=== PATIENT | female | born 1940 | race Caucasian/White ===

== ENCOUNTER 2017-05-23 16:33 | Inpatient (IN) | payer MEDICARE ==
[2017-05-23] VITALS (7 sets, daily range): BP systolic 137–160; BP diastolic 57–60; PULSE 117–130; RESP 18–24; TEMP 97.4–97.8; O2SAT 94–100
[~2017-05-23] VITALS: Ht 165.1 cm; Wt 42.5 kg
[2017-05-23] MEDS ORDERED: IOHEXOL 350 MG/ML 10 ML VIAL (for RAD DIAG) IVCONTRAST ONE (16:34)
[2017-05-23] MEDS ORDERED: DIPHTH/TETANUS/ACEL PERTUSSIS (BOOSTER) 0.5 ML VIAL/PFS IM ONE ×2 (16:39→17:06)
[2017-05-23] MEDS ORDERED: SODIUM CHLOR 0.9% 1000 ML INJ 1,000 ML IV SCH (17:00)
[2017-05-23 17:01] LABS: AUTOMATED NEUTROPHIL # 12.5 TH/MM3 (1.8-7.7); BASOPHIL # 0.1 TH/MM3 (0-0.2); BASOPHIL % 0.7 % (0.0-2.0); EOSINOPHIL # 0.1 TH/MM3 (0-0.4); EOSINOPHIL % 0.9 % (0.0-4.0); HEMATOCRIT 31.3 % (35.0-46.0); HEMO FLAGS DIFF FINAL; LYMPH % 9.4 % (9.0-44.0); LYMPHOCYTE # 1.5 TH/MM3 (1.0-4.8); MEAN CORPUSCULAR HGB CONC 32.3 % (32.0-36.0); PLATELET COUNT 406 TH/MM3 (150-450); RED BLOOD COUNT 3.36 MIL/MM3 (4.00-5.30); RED CELL DISTRIBUTION WIDTH 13.8 % (11.6-17.2); WHITE BLOOD COUNT 15.6 TH/MM3 (4.0-11.0)
[2017-05-23] MEDS ORDERED: ceFAZolin 2 GM PREMIX 50 ML IV STA (17:06)
--- NOTE | 2017-05-23 17:09 | RADRPT ---
EXAM DATE/TIME: 05/23/2017 16:48 [facility] COMPARISON: CHEST SINGLE AP, May 23, 2017, 16:31. INDICATIONS : Trauma Alert-Head pain due to fall. RADIATION DOSE: 69.15 CTDIvol (mGy) MEDICAL HISTORY : Non-responsive. SURGICAL HISTORY : Non-responsive. ENCOUNTER: Initial ACUITY: 1 day PAIN SCALE: Non-responsive LOCATION: Bilateral posterior head. TECHNIQUE: Multiple contiguous axial images were obtained of the head. Using automated exposure control and adj ustment of the mA and/or kV according to patient size, radiation dose was kept as low as reasonably a chievable to obtain optimal diagnostic quality images. DICOM format image data is available electro nically for review and comparison. FINDINGS: There is no evidence for intracranial hemorrhage, mass effect, mass lesions, or edema. The visualize d bony structures appear intact. Slight degree of brain atrophy is seen. Slight periventricular whit e matter changes are seen nonspecific mostly consistent with chronic small vessel ischemic changes. There are no signs of acute infarction for technique. CONCLUSION: Slight atrophic and small vessel ischemic changes without any evidence for acute hemorrhage or mass effect. Amy Taylor MD on May 23, 2017 at 17:06 Board Certified Radiologist. This report was verified electronically.
--- NOTE | 2017-05-23 17:12 | RADRPT ---
EXAM DATE/TIME: 05/23/2017 16:31 [facility] COMPARISON: No previous studies available for comparison. INDICATIONS : Trauma alert, fall. MEDICAL HISTORY : None. SURGICAL HISTORY : None. ENCOUNTER: Initial ACUITY: 1 day PAIN SCORE: 10/10 LOCATION: Right wrist. FINDINGS: There is a complete fracture of the distal radius with impaction of the metaphysis into the epiphysis and dorsal displacement and angulation. CONCLUSION: Distal radial fracture. Amy Taylor MD on May 23, 2017 at 17:10 Board Certified Radiologist. This report was verified electronically.
--- NOTE | 2017-05-23 17:13 | PD ---
HPI Chief Complaint: trauma alert Time Seen by Provider: 16:53 Travel History International Travel<30 days: No Contact w/Intl Traveler<30days: No Traveled to known affect area: No History of Present Illness HPI The patient is a approximately [age]-old female who presents to the emergency department via EMS from [facility] as a trauma alert. According to EMS the patient apparently fell while getting out of bed earlier tonight and struck the back of her head. EMS states that the patient's GCS was 12, she was a limited historian, and they are unsure if she had loss of consciousness. Upon arrival the patient is oriented to person, but not place, month, or year. She is able to tell me that she has a history of COPD and her gallbladder removed, however, cannot give me a full medication list or list of allergies. The patient is a somewhat limited historian. No further information is obtainable from the patient. EMS states that the patient was tachycardic, tachypneic, with a blood pressure that fell into the 90s systolic, however, responded to approximately 600-700 mL of fluid. [facility] Past Medical History Narrative Medical COPD Past Surgical History Narrative Surgical Cholecystectomy Family History Narrative Family History Noncontributory Social History Tobacco Use: Yes Allergies-Medications (Allergen,Severity, Reaction): Coded Allergies: No Known Allergies (Unverified , 05/23/17) Review of Systems ROS Limitations: Clinical Condition, Altered Mental Status Except as stated in HPI: all other systems reviewed are Neg HENT: Positive: Headaches, No: Neck Pain Cardiovascular: No: Chest Pain or Discomfort Respiratory: No: Shortness of Breath Musculoskeletal: Positive: Pain Neurologic: Positive: Change in Mentation Physical Exam Narrative GENERAL: Awake, eyes open, talks in low voice, with mild respiratory distress. SKIN: Multiple old areas of ecchymosis on the upper and lower extremities, old appearing wound to the lateral left shoulder. HEAD: Large cephalohematoma over the left occipital region. EYES: Pupils equal and round. No injection or drainage. ENT: No nasal bleeding or discharge. Dry mucous membranes. NECK: Trachea midline. No JVD. Cervical collar placed during examination. CARDIOVASCULAR: Regular, tachycardic with a heart rate of 130. RESPIRATORY: Tachypnea with retractions supraclavicular and intercostal. Respiratory rate 32. Diffuse wheezing. GASTROINTESTINAL: Abdomen soft, non-tender, nondistended. Well-healed scar right upper quadrant. MUSCULOSKELETAL: Deformity to the right wrist, right radial pulse positive. Limited range of motion of the right hand. He is able flex the hips and knees bilaterally. Scars noted on the hips bilaterally. Full range of motion left upper extremity. NEUROLOGICAL: Eyes are open, talks in the low whisper, follow simple commands. Oriented to person but not month, year, or current location. Back: No tenderness of the thoracic or lumbar vertebrae. Patient was wearing an adult diaper with stool present. PSYCHIATRIC: Unable to assess. Data Data Last Documented VS Vital Signs Date Time Temp Pulse Resp B/P (MAP) Pulse Ox O2 Delivery O2 Flow Rate FiO2 05/23/17 17:39 97.4 126 18 137/60 (85) 99 Room Air 05/23/17 16:52 2.00 Orders Orders Ydwt-Vrg-Sikkew (Booster) Inj (Boostrix (05/23/17 16:39) I-Stat Profile (05/23/17 16:35) I-Stat Creatinine (05/23/17 16:35) Complete Blood Count With Diff (05/23/17 16:35) Prothrombin Time / Inr (Pt) (05/23/17 16:35) Act Partial Throm Time (Ptt) (05/23/17 16:35) Type And Screen (05/23/17 16:35) Chest, Single Ap (05/23/17 16:35) Pelvis, Ap Only (Routine) (05/23/17 16:35) Ct Brain W/O Iv Contrast(Rout) (05/23/17 16:35) Ct Cerv Spine W/O Contrast (05/23/17 16:35) Ct Abd/Pel W Iv Contrast(Rout) (05/23/17 16:35) Ct Thorax/ Chest W Iv Contrast (05/23/17 16:35) Iv Access Insert/Monitor (05/23/17 16:35) Ecg Monitoring (05/23/17 16:35) Oximetry (05/23/17 16:35) Oxygen Administration (05/23/17 16:35) Wrist, Limited (Ap&Lat) (05/23/17 ) Cefazolin 2 Gm Premix (Ancef 2 Gm Premix (05/23/17 17:06) Nbsi-Ibv-Avlhof (Booster) Inj (Boostrix (05/23/17 17:06) Ondansetron Inj (Zofran Inj) (05/23/17 17:15) Morphine Inj (Morphine Inj) (05/23/17 17:15) Sodium Chlor 0.9% 1000 Ml Inj (Ns 1000 M (05/23/17 17:00) Iohexol 350 Inj (Omnipaque 350 Inj) (05/23/17 16:34) Fiberglass Sugartong Sp Ad Arm (05/23/17 ) Collar Lowman (05/23/17 ) Sling Cradle Arm (05/23/17 ) Consult Orthopedic (05/23/17 ) Consult Neurosurgery (05/23/17 ) Labs Laboratory Tests Test 05/23/17 16:40 White Blood Count 15.6 TH/MM3 Red Blood Count 3.36 MIL/MM3 Hemoglobin 10.1 GM/DL Bedside Hemoglobin 10.5 G/DL Hematocrit 31.3 % Bedside Hematocrit 31.0 % Mean Corpuscular Volume 93.0 FL Mean Corpuscular Hemoglobin 30.0 PG Mean Corpuscular Hemoglobin Concent 32.3 % Red Cell Distribution Width 13.8 % Platelet Count 406 TH/MM3 Mean Platelet Volume 6.6 FL Neutrophils (%) (Auto) 80.0 % Lymphocytes (%) (Auto) 9.4 % Monocytes (%) (Auto) 9.0 % Eosinophils (%) (Auto) 0.9 % Basophils (%) (Auto) 0.7 % Neutrophils # (Auto) 12.5 TH/MM3 Lymphocytes # (Auto) 1.5 TH/MM3 Monocytes # (Auto) 1.4 TH/MM3 Eosinophils # (Auto) 0.1 TH/MM3 Basophils # (Auto) 0.1 TH/MM3 CBC Comment DIFF FINAL Differential Comment Prothrombin Time 10.5 SEC Prothromb Time International Ratio 1.0 RATIO Activated Partial Thromboplast Time 23.5 SEC Bedside Sodium 143 MMOL/L Bedside Potassium 5.0 MMOL/L Bedside Chloride 97 MMOL/L Bedside Blood Urea Nitrogen 24 MG/DL Bedside Creatinine 0.7 MG/DL Bedside Glucose 81 MG/DL [facility] Medical Screen Exam Complete: Yes Emergency Medical Condition: Yes Medical Record Reviewed: Yes EKG Prior to Arrival: No Interpretation(s) Laboratory Tests Test 05/23/17 16:40 White Blood Count 15.6 TH/MM3 Red Blood Count 3.36 MIL/MM3 Hemoglobin 10.1 GM/DL Bedside Hemoglobin 10.5 G/DL Hematocrit 31.3 % Bedside Hematocrit 31.0 % Mean Corpuscular Volume 93.0 FL Mean Corpuscular Hemoglobin 30.0 PG Mean Corpuscular Hemoglobin Concent 32.3 % Red Cell Distribution Width 13.8 % Platelet Count 406 TH/MM3 Mean Platelet Volume 6.6 FL Neutrophils (%) (Auto) 80.0 % Lymphocytes (%) (Auto) 9.4 % Monocytes (%) (Auto) 9.0 % Eosinophils (%) (Auto) 0.9 % Basophils (%) (Auto) 0.7 % Neutrophils # (Auto) 12.5 TH/MM3 Lymphocytes # (Auto) 1.5 TH/MM3 Monocytes # (Auto) 1.4 TH/MM3 Eosinophils # (Auto) 0.1 TH/MM3 Basophils # (Auto) 0.1 TH/MM3 CBC Comment DIFF FINAL Differential Comment Prothrombin Time 10.5 SEC Prothromb Time International Ratio 1.0 RATIO Activated Partial Thromboplast Time 23.5 SEC Bedside Sodium 143 MMOL/L Bedside Potassium 5.0 MMOL/L Bedside Chloride 97 MMOL/L Bedside Blood Urea Nitrogen 24 MG/DL Bedside Creatinine 0.7 MG/DL Bedside Glucose 81 MG/DL Last Impressions Pelvis X-Ray 05/23/[id number] Signed Impressions: Service Date/Time: May 16:31 - CONCLUSION: Chronic changes and no evidence for acute fracture. Amy Taylor MD Head CT 05/23/171634 Signed Impressions: Service Date/Time: May 16:48 - CONCLUSION: Slight atrophic and small vessel ischemic changes without any evidence for acute hemorrhage or mass effect. Amy Taylor MD Chest X-Ray 05/23/171634 Signed Impressions: Service Date/Time: May 16:31 - CONCLUSION: No acute cardiopulmonary disease. Amy Taylor MD Chest CT 05/23/171634 Signed Impressions: Service Date/Time: May 17:00 - CONCLUSION: 1. Multiple fractures of thoracic spine and lumbar vertebrae. 2. Right upper lung posteromedial mass and underlying malignancy should be excluded. 3. Adrenal masses versus hemorrhage within both adrenal glands. Amy Taylor MD Cervical Spine CT 05/23/17 1635 Signed Impressions: Service Date/Time: May 16:54 - CONCLUSION: Motion degraded exam grossly negative for acute bony injury. Gilbert Schaefer MD Abdomen/Pelvis CT 05/23/17 1635 Signed Impressions: Service Date/Time: May 16:58 - CONCLUSION: 1. Acute fractures of L1 and L3 vertebrae. 2. Probable bilateral adrenal adenomas, however hemorrhage particularly in the left adrenal gland is difficult to exclude. Amy Taylor MD Wrist X-Ray 05/23/17 0000 Signed Impressions: Service Date/Time: May 16:31 - CONCLUSION: Distal radial fracture. Amy Taylor MD Differential Diagnosis Differential diagnosis includes multisystem trauma, closed head injury, intracranial hemorrhage, cervical fracture, laceration, COPD, rib fracture, wrist fracture, dislocation, contusion, multisystem trauma. Narrative Course ATLS protocol was followed. Upon arrival the patient's airway, breathing, circulation were intact. 2 large-bore IVs were established, labs are drawn and sent, and the patient was placed on cardiac telemetry monitoring and continuous pulse oximetry monitoring. After initial assessment, secondary assessment was performed including chest x-ray, pelvis x-ray, and x-ray the right wrist. X- ray the right wrist reveals a fracture the distal radius, the right upper extremity was neurovascularly intact and subsequently placed in a sugar tong splint. The patient was log rolled, the back was inspected, and a cervical collar was applied during the assessment. The patient received Ancef, tetanus shot, morphine, Zofran, and IV fluids. The patient then went to the CT suite for CT the brain, cervical spine, chest, and abdomen/pelvis. The patient's CT of the thorax and abdomen/pelvis reveal multiple vertebral fractures. A call was placed to the on-call neurosurgeon. I discussed the patient with the on-call orthopedic surgeon, Dr. Soliman, in regards to the right distal radial fracture. The patient was placed in a sugar tong splint by the auto body technician prior to CT. I discussed the patient with the on-call neurosurgeon, Dr. Vega, regards to the multiple thoracic or lumbar vertebrae fractures, no acute treatment needed. The patient will be made to the intensive surgical care unit overnight. Critical Care Narrative Aggregate critical care time was 40 minutes. Time to perform other separately billable procedures was not included in the critical care time. My time did not include minutes spent treating any other patients simultaneously or on activities that did not directly contribute to the patient's treatment. The services I provided to this patient were to treat and/or prevent clinically significant deterioration that could result in: Paralysis, aspiration, hypoxia, anoxia. I provided critical care services requiring my management, as noted below: Chart data review, documentation time, medication orders and management, vital sign assessments/reviewing monitor data, ordering and reviewing lab tests, ordering and interpreting/reviewing x-rays and diagnostic studies, care of the patient and discussion of the patient with the admitting physicians. Trauma Alert - Level One Trauma Alert Level One: Full trauma team activate Time Surgeon Summoned: 16:25 Physician Communication The patient was admitted to the trauma service under Dr. Olmos. Diagnosis Diagnosis: Primary Impression: Fracture of multiple thoracic vertebrae Qualified Codes: S22.009A - Unspecified fracture of unspecified thoracic vertebra, initial encounter for closed fracture Additional Impressions: Closed lumbar vertebral fracture Qualified Codes: S32.009A - Unspecified fracture of unspecified lumbar vertebra, initial encounter for closed fracture Right radial fracture Qualified Codes: S59.201A - Unspecified physeal fracture of lower end of radius, right arm, initial encounter for closed fracture Admitting Physician Requests: Admit Condition: Stable Arik Hendricks MD May 23, 2017 17:13
--- NOTE | 2017-05-23 17:13 | RADRPT ---
EXAM DATE/TIME: 05/23/2017 16:31 [facility] COMPARISON: No previous studies available for comparison. INDICATIONS : Trauma alert. Fall. MEDICAL HISTORY : Chronic obstructive pulmonary disease. SURGICAL HISTORY : None. ENCOUNTER: Initial ACUITY: 1 day PAIN SCORE: 0/10 LOCATION: Bilateral chest FINDINGS: The lungs are clear without infiltrate, nodule, or mass. There is no appreciable pleural effusion fo r technique. Heart and mediastinum are unremarkable. There are atherosclerotic calcifications of the aorta due to chronic atherosclerotic disease. CONCLUSION: No acute cardiopulmonary disease. Amy Taylor MD on May 23, 2017 at 17:11 Board Certified Radiologist. This report was verified electronically.
[2017-05-23 17:14] LABS: APTT (PATIENT) 23.5 SEC (24.3-30.1); PROTHROMBIN TIME - PATIENT 10.5 SEC (9.8-11.6)
--- NOTE | 2017-05-23 17:14 | RADRPT ---
EXAM DATE/TIME: 05/23/2017 16:31 [facility] COMPARISON: No previous studies available for comparison. INDICATIONS : Trauma alert, Fall. MEDICAL HISTORY : None. SURGICAL HISTORY : None. ENCOUNTER: Initial ACUITY: 1 day PAIN SCORE: 0/10 LOCATION: Bilateral pelvis. FINDINGS: No definite fractures, or dislocations are identified. No definite lytic or sclerotic lesion is seen . There are surgical screws traversing bilateral femoral neck with intramedullary clarence involving the l eft femur and there are old healed fractures bilaterally. There is slight osteoarthritis in both hip joints. CONCLUSION: Chronic changes and no evidence for acute fracture. Amy Taylor MD on May 23, 2017 at 17:11 Board Certified Radiologist. This report was verified electronically.
[2017-05-23] MEDS ORDERED: MORPHINE SULFATE 4 MG/ML INJ IV PUSH ONE (17:15)
[2017-05-23] MEDS ORDERED: ONDANSETRON HCL 4 MG/2 ML VIAL IV ONE (17:15)
--- NOTE | 2017-05-23 17:23 | RADRPT ---
EXAM DATE/TIME: 05/23/2017 17:00 [facility] COMPARISON: No previous studies available for comparison. INDICATIONS : Trauma Alert- Short of breath from fall. IV CONTRAST: 80 cc Omnipaque 350 (iohexol) IV RADIATION DOSE: 5.10 CTDIvol (mGy) ; Combined studies - Thorax/Abdomen/Pelvis MEDICAL HISTORY : Non-responsive. SURGICAL HISTORY : Non-responsive. ENCOUNTER: Initial ACUITY: 1 day PAIN SCALE: Non-responsive LOCATION: Bilateral chest TECHNIQUE: Volumetric scanning of the chest was performed. Using automated exposure control and adjustment of t he mA and/or kV according to patient size, radiation dose was kept as low as reasonably achievable to obtain optimal diagnostic quality images. DICOM format image data is available electronically for review and comparison. Follow-up recommendations for detected pulmonary nodules are based at a minimum on nodule size and pa tient risk factors according to Fleischner Society Guidelines. FINDINGS: There are compression fractures of multiple upper thoracic vertebrae including T6, T7, T10. Ther e are also fractures of L1 and L3 vertebrae. The slight scarring is seen in both lower lungs. In the right upper lung posteromedially there is an approximate 5 cm mass probably not related to the patien t's trauma and underlying malignancy should be excluded. There are masses in both adrenal glands rachael uring 3.9 cm on the right and 2.8 cm on the left could be benign adenomas, however metastatic disease or even hemorrhage within the adrenal glands should both be entertained. There are cysts in the left kidney in addition 2 cysts in the region of the desiree hepatis discussed on the patient's abdominal C T. The mediastinum and aorta appear intact. No definite pneumothorax is seen for technique. CONCLUSION: 1. Multiple fractures of thoracic spine and lumbar vertebrae. 2. Right upper lung posteromedial mass and underlying malignancy should be excluded. 3. Adrenal masses versus hemorrhage within both adrenal glands. Amy Taylor MD on May 23, 2017 at 17:13 Board Certified Radiologist. This report was verified electronically.
--- NOTE | 2017-05-23 17:29 | RADRPT ---
EXAM DATE/TIME: 05/23/2017 16:58 [facility] COMPARISON: No previous studies available for comparison. INDICATIONS : Trauma Alert- Abdomen pain from fall. IV CONTRAST: 80 cc Omnipaque 350 (iohexol) IV ORAL CONTRAST: No oral contrast ingested. RADIATION DOSE: 5.10 CTDIvol (mGy) ; Combined studies - Thorax/Abdomen/Pelvis MEDICAL HISTORY : Non-responsive. SURGICAL HISTORY : Non-responsive. ENCOUNTER: Initial ACUITY: 1 day PAIN SCALE: Non-responsive LOCATION: Bilateral upper quadrant TECHNIQUE: Volumetric scanning of the abdomen and pelvis was performed. Using automated exposure control and ad justment of the mA and/or kV according to patient size, radiation dose was kept as low as reasonably achievable to obtain optimal diagnostic quality images. DICOM format image data is available electro nically for review and comparison. FINDINGS: There are fractures of L1 and L3 vertebrae acute in nature. There is prominence of both adrenal glands measuring 3 cm on the right and 2.5 cm on the left may be incidental adenomas, however hemorrh age particularly in the left adrenal gland is not excluded. There are simple cysts in the left kidney the largest measures 2.9 cm in size. There is moderate amount of stool throughout the colon. Common bile duct measures 1 cm in size and the gallbladder is not visualized probably from prior cholecystec betty. There are cystic areas in the head of the pancreas indeterminate most likely benign with conglo merate size of 1.6 cm. The right kidney, liver and spleen appear intact. Chronic vascular calcificati ons are present involving the aorta, iliac arteries without any significant stenosis or aneurysmal di latations for technique. CONCLUSION: 1. Acute fractures of L1 and L3 vertebrae. 2. Probable bilateral adrenal adenomas, however hemorrhage particularly in the left adrenal gland is difficult to exclude. Amy Taylor MD on May 23, 2017 at 17:22 Board Certified Radiologist. This report was verified electronically.
--- NOTE | 2017-05-23 17:30 | RADRPT ---
EXAM DATE/TIME: 05/23/2017 16:54 [facility] COMPARISON: CT THORAX W CONTRAST, May 23, 2017, 17:00. INDICATIONS : Trauma Alert-Neck pain due to fall. RADIATION DOSE: 37.56 CTDIvol (mGy) MEDICAL HISTORY : Non-responsive. SURGICAL HISTORY : Non-responsive. ENCOUNTER: Initial ACUITY: 1 day PAIN SCALE: Non-responsive LOCATION: Bilateral posterior head. TECHNIQUE: Volumetric scanning of the cervical spine was performed. Multiplanar reconstructions in the sagittal, coronal and oblique axial planes were performed. Using automated exposure control and adjustment o f the mA and/or kV according to patient size, radiation dose was kept as low as reasonably achievable to obtain optimal diagnostic quality images. DICOM format image data is available electronically f or review and comparison. FINDINGS: The study is mildly degraded by patient motion. Alignment is grossly satisfactory. There is no definite cervical spine fracture identified. There is moderately severe degenerative change with disc space narrowing and endplate osteophyte formation mos t notably at C3-4 and C4-5. Broad dorsal disc osteophyte complexes are present at these levels. There is mild asymmetrically right-sided foraminal stenosis at C3-4 and bilateral foraminal stenosis at C4 -5. Bilateral cervical ribs are noted. There is no evidence of paraspinal hematoma. CONCLUSION: Motion degraded exam grossly negative for acute bony injury. Gilbert Schaefer MD on May 23, 2017 at 17:23 Board Certified Radiologist. This report was verified electronically.
--- NOTE | 2017-05-23 18:02 | PD ---
Physical Exam Date Seen by Provider: May 23, 2017 Time Seen by Provider: 18:01 Narrative Trauma alert that presents to the ED for evaluation of trauma. I was asked by attending to repair laceration. Please refer to his note. Data Data Last Documented VS Vital Signs Date Time Temp Pulse Resp B/P (MAP) Pulse Ox O2 Delivery O2 Flow Rate FiO2 05/23/17 17:39 97.4 126 18 137/60 (85) 99 Room Air 05/23/17 16:52 2.00 Orders Orders Jwwa-Jif-Vwahyx (Booster) Inj (Boostrix (05/23/17 16:39) I-Stat Profile (05/23/17 16:35) I-Stat Creatinine (05/23/17 16:35) Complete Blood Count With Diff (05/23/17 16:35) Prothrombin Time / Inr (Pt) (05/23/17 16:35) Act Partial Throm Time (Ptt) (05/23/17 16:35) Type And Screen (05/23/17 16:35) Chest, Single Ap (05/23/17 16:35) Pelvis, Ap Only (Routine) (05/23/17 16:35) Ct Brain W/O Iv Contrast(Rout) (05/23/17 16:35) Ct Cerv Spine W/O Contrast (05/23/17 16:35) Ct Abd/Pel W Iv Contrast(Rout) (05/23/17 16:35) Ct Thorax/ Chest W Iv Contrast (05/23/17 16:35) Iv Access Insert/Monitor (05/23/17 16:35) Ecg Monitoring (05/23/17 16:35) Oximetry (05/23/17 16:35) Oxygen Administration (05/23/17 16:35) Wrist, Limited (Ap&Lat) (05/23/17 ) Cefazolin 2 Gm Premix (Ancef 2 Gm Premix (05/23/17 17:06) Xsye-Itu-Ihqdci (Booster) Inj (Boostrix (05/23/17 17:06) Ondansetron Inj (Zofran Inj) (05/23/17 17:15) Morphine Inj (Morphine Inj) (05/23/17 17:15) Sodium Chlor 0.9% 1000 Ml Inj (Ns 1000 M (05/23/17 17:00) Iohexol 350 Inj (Omnipaque 350 Inj) (05/23/17 16:34) Fiberglass Sugartong Sp Ad Arm (05/23/17 ) Collar [place] (05/23/17 ) Sling Cradle Arm (05/23/17 ) Consult Orthopedic (05/23/17 ) Consult Neurosurgery (05/23/17 ) Admit Order (Ed Use Only) (05/23/17 17:51) Labs Laboratory Tests Test 05/23/17 16:40 White Blood Count 15.6 TH/MM3 Red Blood Count 3.36 MIL/MM3 Hemoglobin 10.1 GM/DL Bedside Hemoglobin 10.5 G/DL Hematocrit 31.3 % Bedside Hematocrit 31.0 % Mean Corpuscular Volume 93.0 FL Mean Corpuscular Hemoglobin 30.0 PG Mean Corpuscular Hemoglobin Concent 32.3 % Red Cell Distribution Width 13.8 % Platelet Count 406 TH/MM3 Mean Platelet Volume 6.6 FL Neutrophils (%) (Auto) 80.0 % Lymphocytes (%) (Auto) 9.4 % Monocytes (%) (Auto) 9.0 % Eosinophils (%) (Auto) 0.9 % Basophils (%) (Auto) 0.7 % Neutrophils # (Auto) 12.5 TH/MM3 Lymphocytes # (Auto) 1.5 TH/MM3 Monocytes # (Auto) 1.4 TH/MM3 Eosinophils # (Auto) 0.1 TH/MM3 Basophils # (Auto) 0.1 TH/MM3 CBC Comment DIFF FINAL Differential Comment Prothrombin Time 10.5 SEC Prothromb Time International Ratio 1.0 RATIO Activated Partial Thromboplast Time 23.5 SEC Bedside Sodium 143 MMOL/L Bedside Potassium 5.0 MMOL/L Bedside Chloride 97 MMOL/L Bedside Blood Urea Nitrogen 24 MG/DL Bedside Creatinine 0.7 MG/DL Bedside Glucose 81 MG/DL [facility] Medical Record Reviewed: Yes Supervised Visit with RODOLFO: No Procedures Procedure Narrative LACERATION LOCATION: left occipital head LENGTH: 2 cm NUMBER OF STITCHES/MARY LOU: 6 mary lou REPAIR: The area of the laceration was prepped with Betadine and sterilely draped. The laceration was infiltrated with 1% Xylocaine. The wound was copiously irrigated and explored without evidence of foreign body, tendon injury or neurovascular injury. The wound was closed using sterile mary lou. This was a 1 layer repair. A sterile dressing was applied. The patient was advised to keep the dressing clean and dry. Patient tolerated the procedure well. Diagnosis Primary Impression: Fracture of multiple thoracic vertebrae Qualified Codes: S22.009A - Unspecified fracture of unspecified thoracic vertebra, initial encounter for closed fracture Additional Impressions: Closed lumbar vertebral fracture Qualified Codes: S32.009A - Unspecified fracture of unspecified lumbar vertebra, initial encounter for closed fracture Right radial fracture Qualified Codes: S59.201A - Unspecified physeal fracture of lower end of radius, right arm, initial encounter for closed fracture Condition: Kofi Galo May 23, 2017 18:02
[2017-05-23] MEDS ORDERED: oxyCODONE/ACETAMINOPHEN 5 MG/325 MG TAB PO ONE (21:30)
--- NOTE | 2017-05-23 23:58 | RADRPT ---
EXAM DATE/TIME: 05/23/2017 17:00 [facility] COMPARISON: No previous studies available for comparison. INDICATIONS : Trauma, fall. Evaluate for fracture. RADIATION DOSE: ; Reconstructed from previous dataset, no dose MEDICAL HISTORY : Non-responsive. SURGICAL HISTORY : Non-responsive. ENCOUNTER: Initial ACUITY: 1 day PAIN SCALE: Non-responsive LOCATION: Thoracic spine. TECHNIQUE: Volumetric scanning of the thoracic spine was performed. Multiplanar reconstructions in the sagittal , coronal and oblique axial planes were performed. Using automated exposure control and adjustment o f the mA and/or kV according to patient size, radiation dose was kept as low as reasonably achievable to obtain optimal diagnostic quality images. DICOM format image data is available electronically f or review and comparison. FINDINGS: Multiple compression fractures involving the T6, T7, T10, L1, and L3 vertebral bodies. There is mild compression deformity at T6, moderate wedge-shaped compression deformity at T7 and superior endplate deformities at T10, L1 and L3. Approximately 5 mm retropulsion of fragments along the superior endpla te of L1. Otherwise, no retropulsed fragments are noted at the remaining levels. There is mild prever tebral soft tissue stranding primarily involving L1 and L3. Otherwise, no evidence for significant pr evertebral hematoma. Sagittal alignment is maintained. Facets are normally aligned. There are mild de generative changes throughout the thoracic spine with disc space narrowing and primarily anterior ost eophyte formation. Again noted is a large cavitary mass in the posterior right upper lobe measuring u p to 4.4 cm. There is underlying moderate centrilobular emphysema in the visualized portions of the l ungs. There is also redemonstration of bilateral adrenal masses. Partially visualized cysts in the le ft kidney. CONCLUSION: 1. Compression fractures involving T6, T7, T10, L1, and L3 vertebral bodies with approximately 5 mm r etropulsion of fragments along the superior endplate of L1. No additional retropulsed fragments. No s ubluxation. 2. 4.4 cm posterior right upper lobe cavitary mass with underlying moderate centrilobular emphysema c onsistent with lung primary. 3. Bilateral adrenal masses versus less likely adrenal hematomas. Anthony Burton MD on May 23, 2017 at 23:47 Board Certified Radiologist. This report was verified electronically.
[2017-05-24] VITALS (14 sets, daily range): BP systolic 126–151; BP diastolic 56–89; PULSE 99–118; RESP 21–26; TEMP 98.3–98.6; O2SAT 95–100
--- NOTE | 2017-05-24 00:03 | RADRPT ---
EXAM DATE/TIME: 05/23/2017 17:00 [facility] COMPARISON: No previous studies available for comparison. INDICATIONS : Trauma, fall. Evaluate for fracture. RADIATION DOSE: ; Reconstructed from previous dataset, no dose MEDICAL HISTORY : Non-responsive. SURGICAL HISTORY : Non-responsive. ENCOUNTER: Initial ACUITY: 1 day PAIN SCALE: Non-responsive LOCATION: Lumbar spine. TECHNIQUE: Volumetric scanning of the lumbar spine was performed. Multiplanar reconstructions in the sagittal, coronal and oblique axial planes were performed. Using automated exposure control and adjustment of the mA and/or kV according to patient size, radiation dose was kept as low as reasonably achievable t o obtain optimal diagnostic quality images. DICOM format image data is available electronically for review and comparison. FINDINGS: Mild to moderate compression deformities of L1 and L3 vertebral bodies with approximately 5 mm retrop ulsion of fragments at L1. Bony central canal measures approximately 9 mm at this level. There is sub tle compression deformity at L5 likely related to a Schmorl's node rather than fracture. There is robetr roximate 4 mm grade 1 anterolisthesis of L5 on S1. Sagittal alignment is otherwise maintained. Promin ent facet arthropathy most prominently at L5-S1. Facets are otherwise normally aligned. Redemonstrati on of bilateral adrenal masses. Partially imaged left renal cysts. Dense atherosclerotic calcificatio ns of the infrarenal abdominal aorta and proximal common iliac arteries. CONCLUSION: 1. Mild to moderate compression fractures of L1 and L3 vertebral bodies with approximately 30-40 % lo ss of vertebral body height. There is 5 mm retropulsion of fragments at L1 with resultant central can al narrowing to approximately 9 mm at this level. 2. Redemonstration of bilateral adrenal masses versus less likely hematomas. 1. Anthony Burton MD on May 23, 2017 at 23:57 Board Certified Radiologist. This report was verified electronically.
[2017-05-24] MEDS ORDERED: CHLORHEXIDINE GLUCONATE 2 % 1 PACK (2 CLOTHS) TOP PRN (07:00)
[2017-05-24] MEDS ORDERED: ONDANSETRON HCL 4 MG/2 ML VIAL IV PRN (07:00)
[2017-05-24] MEDS ORDERED: SODIUM CHLORIDE 0.9% FLUSH 10 ML FLUSH IV FLUSH PRN (07:00)
[2017-05-24] MEDS ORDERED: MISCELLANEOUS NURSING INFORMATION XX SCH (07:00)
[2017-05-24] MEDS ORDERED: ENALAPRILAT 1.25 MG/ML VIAL IV PRN (07:00)
[2017-05-24] MEDS ORDERED: MORPHINE SULFATE 4 MG/ML INJ IV PRN (07:00)
[2017-05-24] MEDS ORDERED: SODIUM CHLOR 0.9% 1000 ML INJ 1,000 ML IV SCH (08:00)
--- NOTE | 2017-05-24 08:42 | MB ---
cc: YRN RUSHING DATE OF CONSULTATION 05/24/2017 REASON FOR CONSULTATION CONSULTATION Right distal radius fracture. HISTORY This patient known as Deirdre Aguilar is an approximately 79-year-old female who had a fall. She was getting out of bed. She did hit her head. She is currently in the Intensive Care Unit. She is a poor historian and unable to give any significant history regarding her fall or injury. She presented to the emergency room where she was found to have a right distal radius fracture. She is currently awake, but does have some confusion. She does complain of right wrist pain. Pain is worse with movement. PAST MEDICAL HISTORY Her past history is limited secondary to the patient's state of confusion. She does have a history of COPD. SURGERIES Cholecystectomy ALLERGIES NO KNOWN DRUG ALLERGIES. MEDICATIONS Please see EMR for a complete list of inpatient medications. SOCIAL HISTORY Unobtainable FAMILY HISTORY Unobtainable REVIEW OF SYSTEMS Unobtainable and limited secondary to confusion. PHYSICAL EXAMINATION The patient is a thin female who appears approximately 79-year-old. She is awake, but confused. VITAL SIGNS: Temperature 97.4, pulse 117, blood pressure 160/57, O2 sats 100% on two liters nasal cannula. HEAD: The patient is normocephalic but does have a contusion on the back of her head. EYES: Pupils are equal. NECK: Soft, nontender. Trachea is midline. ABDOMEN: Soft, nontender, nondistended. EXTREMITIES: Examination of the right arm reveals no obvious pain or deformity around her shoulder or elbow. She is diffusely tender around the wrist. She has good cap refill in her fingers. Sensation is grossly intact in all fingers. Examination of left arm reveals no pain with shoulder, elbow or wrist motion. She has good cap refill fingers. Skin is intact. Examination of bilateral lower extremities reveals no obvious pain or deformity with hip, knee or ankle motion. Sensation is intact to both feet. Dorsalis pedis pulses are palpable. X-RAYS X-rays of the right wrist were reviewed. X-rays reveal a mildly angulated right distal radius fracture. CT scan of lumbar spine reveals mild compression fracture of L1 and L3. She also has some compression deformity of T6, T7 and T10. IMPRESSION 1. Right distal radius fracture. 2. Multiple compression fractures including T6, T7, T10, L1 and L3. PLAN The treatment options were discussed with the patient. At this point, she is confused. At this point, I would recommend nonsurgical treatment regarding her right wrist. I will have her placed into a long-arm cast. Would also recommend nonoperative treatment of her compression fractures. I will continue to follow the patient's progress. A mid-level provider in my office, nurse practitioner or PA, may see this patient on a follow-up basis and continue to implement the objective of this plan including: Starting or adjusting medications, injections of muscle, tendon, bursa or joints, cast application, orthotic or brace application, physical therapy, further radiographic studies including x-ray, MRI, CT, ultrasounds or bone scan, vascular studies, neurologic studies, or other specialist consultations, and proceeding with surgical management as appropriate. MD CELESTINO Gerber/LEW /7:38 AM /8:19 AM
[2017-05-24] MEDS: FAMOTIDINE 20 MG TAB PO SCH ×2 (09:02→23:56)
[2017-05-24] MEDS: DOCUSATE SODIUM 50 MG/SENNA 8.6 MG TAB PO SCH ×2 (09:02→23:56)
--- NOTE | 2017-05-24 10:52 | HHI.CCPN ---
Subjective Brief History 79-year-old female fell out of bed and sustained fracture of her left wrist In addition patient has multiple compression fractures of thoracic and lumbar spine which are not related to this event Patient was admitted to ICU for observation and at this point we'll transfer to floor and then be able to transition back home or to the shelter Patient is DNR 24 Hour Review/Hospital Course 05/24/17 Patient has been stable overnight Is awake alert and completely disoriented to time and space and person. Patient clearly has neurocognitive deficits in the form of advanced dementia Patient is able to eat and drink Cast has been applied to the wrist I agree with Dr. Reina that this will not require surgery and patient should be managed conservatively Patient be transferred to the floor today and can be discharged from hospital any time Objective Vital Signs Date Time Temp Pulse Resp B/P (MAP) Pulse Ox O2 Delivery O2 Flow Rate FiO2 05/24/17 10:00 100 05/24/17 09:04 100 Nasal Cannula 2.00 05/24/17 08:00 98.4 22 137/76 (96) Intake and Output 05/24/17 05/24/17 05/25/17 08:00 16:00 00:00 Intake Total 790 ml Output Total 600 ml Balance 190 ml Result Diagram: 05/23/17 1640 Imaging Last 24 hours Impressions Pelvis X-Ray 05/23/171634 Signed Impressions: Service Date/Time: May 16:31 - CONCLUSION: Chronic changes and no evidence for acute fracture. Amy Taylor MD Head CT 05/23/171634 Signed Impressions: Service Date/Time: May 16:48 - CONCLUSION: Slight atrophic and small vessel ischemic changes without any evidence for acute hemorrhage or mass effect. Amy Taylor MD Chest X-Ray 05/23/171634 Signed Impressions: Service Date/Time: May 16:31 - CONCLUSION: No acute cardiopulmonary disease. Amy Taylor MD Chest CT 05/23/171634 Signed Impressions: Service Date/Time: May 17:00 - CONCLUSION: 1. Multiple fractures of thoracic spine and lumbar vertebrae. 2. Right upper lung posteromedial mass and underlying malignancy should be excluded. 3. Adrenal masses versus hemorrhage within both adrenal glands. Amy Taylor MD Cervical Spine CT 05/23/17 1635 Signed Impressions: Service Date/Time: May 16:54 - CONCLUSION: Motion degraded exam grossly negative for acute bony injury. Gilbert Schaefer MD Abdomen/Pelvis CT 05/23/17 1635 Signed Impressions: Service Date/Time: May 16:58 - CONCLUSION: 1. Acute fractures of L1 and L3 vertebrae. 2. Probable bilateral adrenal adenomas, however hemorrhage particularly in the left adrenal gland is difficult to exclude. Amy Taylor MD Exam INSTALLATION SPECIALIST Awake alert but completely disoriented times space and person patient doesn't remember her name, Hemodynamic/Cardiac Hemodynamically stable Pulmonary/Respiratory Bilateral breath sounds no rhonchi and no cough Abdomen/GI Nutrition Abdomen is soft active bowel sounds no masses patient was placed on diet Renal/I&O Good urine output normal preserved renal function Assessment and Plan Attestation Critical care 38 minutes Transfer patient to floor and discharge Yaakov Conn MD May 24, 2017 10:52
[2017-05-24 11:56] LABS: BACTERIA, URINE RARE /hpf; BLOOD, URINE TRACE (NEG); COMMENT (UR) CATH-CULTURE IND; CULTURE IF INDICATED CATH CULTURE IND; GLUCOSE,URINE NEG (NEG); HYALINE CAST, URINE 1 /lpf (RARE); KETONE, URINE 80 mg/dL (NEG); MUCUS URINE FEW /lpf (OCC); NITRITE,URINE NEG (NEG); PH, URINE 5.5 (5.0-8.5); SQUAMOUS EPITHELIAL CELL URINE <1 /hpf (0-5); URINE COLOR YELLOW (YELLW/STRAW)
[2017-05-24] MEDS: RESP: ALBUTEROL 2.5 MG/3 ML NEB (SCH) NEB ×3 (12:00→20:39)
--- NOTE | 2017-05-24 14:35 | MB ---
cc: ANNETTE KUHN M.D. DATE OF CONSULTATION 05/24/17 CONSULTATIONS Thoracic, lumbar compression fractures. HISTORY OF PRESENT ILLNESS This is an elderly female who fell while trying to get out of her bed, residing in a [facility]. The patient apparently has a history of dementia and confusion and is a very poor historian. She was brought in as a trauma alert and workup included CT scan of the head which was negative for any injury. CT cervical spine did not reveal any fractures. A CT of the thoracic spine reveals compression fractures involving the T7, T10, L1, L3 and L5 vertebral bodies. At the L1 level there is a retropulsed fragment with about 30% spinal canal stenosis. She complains of mid to lower back pain, although denies any numbness or paresthesias. She also complains of dyspnea and relates that she takes albuterol inhalers which she has for her COPD. She was also found to have a right distal radial fracture and is placed in a cast with nonsurgical management recommended by orthopedic surgery. CT of the chest the right upper lung masses also noted. PAST MEDICAL HISTORY COPD, cholecystectomy, but otherwise limited information since the patient is demented and confused and cannot relate a history. MEDICATIONS Unknown although she does relate taking albuterol inhalers. ALLERGIES NO KNOWN DRUG ALLERGIES. SOCIAL HISTORY She has a history of dementia and is a [facility] resident. REVIEW OF SYSTEMS Cannot be reliably obtained given her dementia and confusion which she complains of back pain as well as complains of dyspnea with rest. Complains of right arm pain. Denies numbness or paresthesias in the upper or lower extremities. LABORATORY FINDINGS White blood cell count 15.6, hemoglobin 10.1, platelet count 406, PT 10.5, INR 1.0, PTT 23.5, sodium 143, potassium 5, BUN 24, creatinine 0.7, glucose 81. PHYSICAL EXAMINATION VITAL SIGNS: Temperature 98.4, pulse 100, respiratory rate 22, blood pressure 137/76, oxygen saturations 100% on 2 liters nasal cannula. HEAD: She has occipital scalp abrasions but no Garcia's or raccoon sign. NECK: Supple with no guarding or rigidity. CHEST: Clear to auscultation. HEART: Mild tachycardia, normal S1-S2. ABDOMEN: Soft, nontender. EXTREMITIES: She has a cast on the right upper extremity. No other deformities noted. NEUROLOGIC: She is awake. Pupils are equal. She is oriented to name but not location or date. Face is symmetric. Extraocular muscles intact. She moves all four extremities with limitation related to right upper extremity fracture in a cast. Equivocal Babinski. Appreciates light touch sensation in the upper and lower extremities. IMPRESSION 1. Multiple thoracic and lumbar spine compression fractures with L2 fracture with a mild to moderate retropulsion and about 30% spinal stenosis. The T6 and T7 fractures are mild to moderate along with the T10 mild fracture and L3 and L5 being mild compression fractures. It is hard to delineate if there is an acute on chronic component since most of these fractures do have some sclerotic component to them also. 2. COPD with complaint of dyspnea. 3. Right radial fracture with nonoperative management. 4. Dementia, [facility] resident. PLAN Recommended conservative management with a TLSO brace for the thoracic and lumbar spine fractures. The patient will be on when she is ___ or out of bed. Her activity status can be increased as tolerated. Would recommend follow-up thoracic and lumbar spine x-rays in 6 weeks to assess healing of these fractures. DVT and gastrointestinal stress ulcer prophylaxis as per the trauma surgery service. MD CRISTIANE Mckeon/SHADE /1:40 PM /2:23 PM
[2017-05-24] MEDS: ACETAMINOPHEN/HYDROcodone 325 MG/5 MG TAB PO PRN (16:13)
[2017-05-24] MEDS: MAGNESIUM HYDROXIDE SUSP 30 ML CUP PO SCH (21:00)
[2017-05-25] VITALS (9 sets, daily range): BP systolic 129–160; BP diastolic 60–64; PULSE 96–116; RESP 16–21; TEMP 97.6–98.6; O2SAT 95–100
[2017-05-25] MEDS: RESP: ALBUTEROL 2.5 MG/3 ML NEB (SCH) NEB ×6 (01:18→20:48)
[2017-05-25] MEDS ORDERED: CHLORHEXIDINE GLUCONATE 2 % 1 PACK (2 CLOTHS) TOP SCH (04:00)
--- NOTE | 2017-05-25 04:19 | RADRPT ---
EXAM DATE/TIME: 05/25/2017 03:45 [facility] COMPARISON: CT BRAIN W/O CONTRAST, May 23, 2017, 16:48. INDICATIONS : Fell and hit head. Right forehead swelling and bruising. RADIATION DOSE: 31.37 CTDIvol (mGy) MEDICAL HISTORY : Non-responsive. SURGICAL HISTORY : Non-responsive. ENCOUNTER: Initial ACUITY: 1 day PAIN SCALE: Non-responsive LOCATION: cranial TECHNIQUE: Multiple contiguous axial images were obtained of the head. Using automated exposure control and adj ustment of the mA and/or kV according to patient size, radiation dose was kept as low as reasonably a chievable to obtain optimal diagnostic quality images. DICOM format image data is available electro nically for review and comparison. FINDINGS: CEREBRUM: The ventricles are normal for age. No evidence of midline shift, mass lesion, hemorrhage or acute in farction. No extra-axial fluid collections are seen. Chronic low attenuation in the bilateral white matter again noted. POSTERIOR FOSSA: The cerebellum and brainstem are intact. The 4th ventricle is midline. The cerebellopontine angle i s unremarkable. EXTRACRANIAL: The visualized portion of the orbits is intact. SKULL: The calvaria is intact. No evidence of skull fracture. CONCLUSION: No bleed or other acute intracranial abnormality. Mild chronic white matter changes are again noted. Gilbert Rene MD on May 25, 2017 at 4:17 Board Certified Radiologist. This report was verified electronically.
[2017-05-25] MEDS: ACETAMINOPHEN/HYDROcodone 325 MG/5 MG TAB PO PRN ×2 (06:39→10:35)
[2017-05-25 10:24] LABS: AUTOMATED NEUTROPHIL # 12.7 TH/MM3 (1.8-7.7); BASOPHIL % 0.1 % (0.0-2.0); EOSINOPHIL # 0.1 TH/MM3 (0-0.4); EOSINOPHIL % 0.4 % (0.0-4.0); HEMATOCRIT 22.3 % (35.0-46.0); HEMO FLAGS DIFF FINAL; LYMPH % 9.3 % (9.0-44.0); LYMPHOCYTE # 1.5 TH/MM3 (1.0-4.8); MEAN CELL VOLUME 92.2 FL (80.0-100.0); MEAN CORPUSCULAR HEMOGLOBIN 29.4 PG (27.0-34.0); MEAN CORPUSCULAR HGB CONC 31.9 % (32.0-36.0); MONO % 10.3 % (0.0-8.0); NEUT % 79.9 % (16.0-70.0); PLATELET COUNT 329 TH/MM3 (150-450); RED BLOOD COUNT 2.42 MIL/MM3 (4.00-5.30); RED CELL DISTRIBUTION WIDTH 13.9 % (11.6-17.2)
[2017-05-25] MEDS: DOCUSATE SODIUM 50 MG/SENNA 8.6 MG TAB PO SCH ×2 (10:31→21:37)
[2017-05-25] MEDS: FAMOTIDINE 20 MG TAB PO SCH ×2 (10:31→21:37)
[2017-05-25 10:53] LABS: ANION GAP 5 MEQ/L (5-15); AST (GOT) 19 U/L (15-37); BICARBONATE 36.5 MEQ/L (21.0-32.0); BLOOD UREA NITROGEN 17 MG/DL (7-18); CHLORIDE 101 MEQ/L (98-107); GLOMERULAR FILTRATION RATE 146 ML/MIN (>89); POTASSIUM 3.6 MEQ/L (3.5-5.1); SODIUM (NA) 142 MEQ/L (136-145)
[2017-05-25 10:56] LABS: ALKALINE PHOSPHATASE 129 U/L (45-117); ALT (GPT) 24 U/L (10-53); TOTAL BILIRUBIN ADULT 0.3 MG/DL (0.2-1.0)
--- NOTE | 2017-05-25 11:19 | HHI.PR ---
Subjective Subjective Notes PTD: 2 Pt is OOB to bedside commode. RN and SEARCH STRATEGIST a bedside. Pt remains confused. Follows commands. RN states that she fell overnight. STAT CT head negative. Objective Vitals/I&O Vital Signs Date Time Temp Pulse Resp B/P (MAP) Pulse Ox O2 Delivery O2 Flow Rate FiO2 05/25/17 09:04 98 Nasal Cannula 3.00 05/25/17 08:00 97.7 96 16 133/60 (84) Labs Laboratory Tests Test 05/23/17 16:40 05/23/17 21:28 05/24/17 11:30 05/25/17 09:23 Bedside Hemoglobin 10.5 G/DL Bedside Hematocrit 31.0 % Prothrombin Time 10.5 SEC Prothromb Time International Ratio 1.0 RATIO Activated Partial Thromboplast Time 23.5 SEC Bedside Sodium 143 MMOL/L Bedside Potassium 5.0 MMOL/L Bedside Chloride 97 MMOL/L Bedside Blood Urea Nitrogen 24 MG/DL Bedside Creatinine 0.7 MG/DL Bedside Glucose 81 MG/DL Nasal Screen MRSA (PCR) MRSA NOT DETECTED Urine Color YELLOW Urine Turbidity CLEAR Urine pH 5.5 Urine Specific [place] 1.021 Urine Protein TRACE mg/dL Urine Glucose (UA) NEG mg/dL Urine Ketones 80 mg/dL Urine Occult Blood TRACE Urine Nitrite NEG Urine Bilirubin NEG Urine Urobilinogen LESS THAN 2.0 MG/DL Urine Leukocyte Esterase MOD Urine RBC 6 /hpf Urine WBC 30 /hpf Urine Squamous Epithelial Cells <1 /hpf Urine Bacteria RARE /hpf Urine Hyaline Casts 1 /lpf Urine Mucus FEW /lpf Microscopic Urinalysis Comment CATH-CULTURE IND White Blood Count 16.0 TH/MM3 Red Blood Count 2.42 MIL/MM3 Hemoglobin 7.1 GM/DL Hematocrit 22.3 % Mean Corpuscular Volume 92.2 FL Mean Corpuscular Hemoglobin 29.4 PG Mean Corpuscular Hemoglobin Concent 31.9 % Red Cell Distribution Width 13.9 % Platelet Count 329 TH/MM3 Mean Platelet Volume 6.8 FL Neutrophils (%) (Auto) 79.9 % Lymphocytes (%) (Auto) 9.3 % Monocytes (%) (Auto) 10.3 % Eosinophils (%) (Auto) 0.4 % Basophils (%) (Auto) 0.1 % Neutrophils # (Auto) 12.7 TH/MM3 Lymphocytes # (Auto) 1.5 TH/MM3 Monocytes # (Auto) 1.6 TH/MM3 Eosinophils # (Auto) 0.1 TH/MM3 Basophils # (Auto) 0.0 TH/MM3 CBC Comment DIFF FINAL Differential Comment Blood Urea Nitrogen 17 MG/DL Creatinine 0.38 MG/DL Random Glucose 105 MG/DL Total Protein 5.3 GM/DL Albumin 2.4 GM/DL Calcium Level 8.0 MG/DL Alkaline Phosphatase 129 U/L Aspartate Amino Transf (AST/SGOT) 19 U/L Alanine Aminotransferase (ALT/SGPT) 24 U/L Total Bilirubin 0.3 MG/DL Sodium Level 142 MEQ/L Potassium Level 3.6 MEQ/L Chloride Level 101 MEQ/L Carbon Dioxide Level 36.5 MEQ/L Anion Gap 5 MEQ/L Estimat Glomerular Filtration Rate 146 ML/MIN Radiology Last [address] 05/25/17 0000 Signed Impressions: Service Date/Time: Thursday, May 25, 2017 03:45 - CONCLUSION: No bleed or other acute intracranial abnormality. Mild chronic white matter changes are again noted. Gilbert Rene MD Pelvis X-Ray 05/23/[id number] Signed Impressions: Service Date/Time: May 16:31 - CONCLUSION: Chronic changes and no evidence for acute fracture. Amy Taylor MD Head CT 05/23/17 1635 Signed Impressions: Service Date/Time: May 16:48 - CONCLUSION: Slight atrophic and small vessel ischemic changes without any evidence for acute hemorrhage or mass effect. Amy Taylor MD Chest X-Ray 05/23/17 163 Signed Impressions: Service Date/Time: May 16:31 - CONCLUSION: No acute cardiopulmonary disease. Amy Taylor MD Chest CT 05/23/17 1635 Signed Impressions: Service Date/Time: May 17:00 - CONCLUSION: 1. Multiple fractures of thoracic spine and lumbar vertebrae. 2. Right upper lung posteromedial mass and underlying malignancy should be excluded. 3. Adrenal masses versus hemorrhage within both adrenal glands. Amy Taylor MD Cervical Spine CT 05/23/17 1635 Signed Impressions: Service Date/Time: May 16:54 - CONCLUSION: Motion degraded exam grossly negative for acute bony injury. Gilbert Schaefer MD Abdomen/Pelvis CT 05/23/17 1635 Signed Impressions: Service Date/Time: May 16:58 - CONCLUSION: 1. Acute fractures of L1 and L3 vertebrae. 2. Probable bilateral adrenal adenomas, however hemorrhage particularly in the left adrenal gland is difficult to exclude. Amy Taylor MD Narrative Exam GENERAL: This is a 79-mik year old elderly female. SKIN: Warm and dry. Scattered areas of bruising/abrasions. (Right forehead, right shoulder, right page) HEAD: Normocephalic. Left occipital laceration with mary lou. MARCELINA. EYES: PERRLA ENT: No nasal bleeding or discharge. Mucous membranes pink and moist. NECK: Trachea midline. No JVD. CARDIOVASCULAR: Regular rate and rhythm. RESPIRATORY: No accessory muscle use. Lungs are clear to auscultation. Breath sounds equal bilaterally. No distress or dyspnea. GASTROINTESTINAL: BS + x 4 quads. Abdomen soft, nondistended. MUSCULOSKELETAL: Extremities without cyanosis, or edema. RIGHT arm splint in place. + peripheral pulses x 4 extremities. Warm with good capillary refill and sensation. MAEW. NEUROLOGICAL: Awake and alert. Pleasantly confused, does not answer questions appropriately. Will be brought out to nursing station in a recliner chair so she can be watched at all times. A/P Problem List: (1) Closed lumbar vertebral fracture ICD Codes: S32.009A - Unspecified fracture of unspecified lumbar vertebra, initial encounter for closed fracture Status: Acute (2) Right radial fracture ICD Codes: S52.91XA - Unspecified fracture of right forearm, initial encounter for closed fracture Status: Acute (3) Fracture of multiple thoracic vertebrae ICD Codes: S22.009A - Unspecified fracture of unspecified thoracic vertebra, initial encounter for closed fracture Status: Acute Assessment and Plan [place]: This is a 79year old elderly female who was involved in a mechanical fall. She fell when she was getting out of bed and struck the back of her head. GCS = 12. Tachycardic, tachypneic, and hypotensive en route. Responded well to fluid bolus. PMHx: COPD. Cholecystectomy. Alzheimer's/dementia. INJURIES: LEFT occipital head laceration (6 mary lou) L1 and L3 fx *RIGHT upper lung MASS *BILAT adrenal MASS vs hemorrhage RIGHT radius fx (non-op) Procedures: Consults: [facility]. Orthopedics. Neurosurgery. Case management. Second request for nursing to obtain patient's home meds and complete medication reconciliation. Diet: Regular mechanical soft diet with finger foods. Tolerating po diet. Encourage good po intake with each meal. Pulmonary: Encourage good pulmonary toileting. IS at bedside and pt encouraged to use. Rationale for use explained to patient, and verbalized understanding. PAIN Management: [place] 5-10 mg every 4 hours. Activity: OOB with TLSO brace. PT and OT ordered. GI prophylaxis: Pepcid BID. Bowel regimen: Vicenta-olace and MOM. LBM: 05/25 DVT prophylaxis: Mechanical VTE with SCDs. Chemical management TBD. DC Planning: Case management consulted for assistance with final discharge disposition. PT and OT recommended to rehabilitation, however patient will probably need permanent placement due to continued and frequent falls with injury. Emotional support provided to patient and family at bedside and plan of care discussed. Discussed with RN at bedside. Patient is hemodynamically stable and being managed on the med/surg floor. The trauma team will round each day, and evaluate plan of care on a daily basis. LEFT occipital head laceration (6 mary lou) Wash gently with soap and water. Pat dry. Leaves [employer]. Remove mary lou in 10-14 days. L1 and L3 fx Neurosurgery consulted and assisting in management and care Nonoperative management at this time. Supportive care. Immobilize OOB with TLSO brace. Pain management PT and OT ordered. RIGHT radius fx (non-op) Orthopedics consulted and assisting in management and care Non-operative management at this time Supportive care Serial neuro vascular checks. PT and OT ordered. Encourage out of bed Follow-up with orthopedics outpatient Anemia H&H - 7.1 / 23.3 STAT H&H recheck Stat chest x-ray The patient fell last night 05/25 CT brain - no bleed Scattered abrasions / bruising Problem Qualifiers (1) Closed lumbar vertebral fracture: Qualified Codes: S32.009A - Unspecified fracture of unspecified lumbar vertebra , initial encounter for closed fracture (2) Right radial fracture: Qualified Codes: S59.201A - Unspecified physeal fracture of lower end of radius , right arm, initial encounter for closed fracture (3) Fracture of multiple thoracic vertebrae: Qualified Codes: S22.009A - Unspecified fracture of unspecified thoracic vertebra, initial encounter for closed fracture Miladis Middleton May 25, 2017 11:19
--- NOTE | 2017-05-25 12:36 | RADRPT ---
EXAM DATE/TIME: 05/25/2017 11:56 [place] COMPARISON: CT THORAX W CONTRAST, May 23, 2017, 17:00. CHEST SINGLE AP, May 23, 2017, 16:31. INDICATIONS : Shortness of breath. MEDICAL HISTORY : Unknown. SURGICAL HISTORY : Unknown. ENCOUNTER: Subsequent ACUITY: 3 days PAIN SCORE: Non-responsive. LOCATION: Bilateral chest FINDINGS: Portable AP view of the chest demonstrates a normal-sized cardiac silhouette. Lungs are hyperinflated related to underlying emphysema. There is stable right upper lung zone mass. No pleural effusion or pneumothorax is identified. CONCLUSION: 1. Stable background emphysema. No acute abnormality is identified. 2. Stable mass at the right lung apex suspicious for neoplasm based on recent CT. Consider further ev aluation with biopsy. Gilbert Lopez MD on May 25, 2017 at 12:32 Board Certified Radiologist. This report was verified electronically.
[2017-05-25 17:30] LABS: HEMATOCRIT 23.3 % (35.0-46.0); REVIEW FLAG FINAL
[2017-05-25] MEDS ORDERED: MAGN400S PO (19:18)
[2017-05-25] MEDS ORDERED: SENN1TAB PO (19:18)
[2017-05-25] MEDS: MAGNESIUM HYDROXIDE SUSP 30 ML CUP PO SCH (21:36)
[2017-05-26] VITALS (8 sets, daily range): BP systolic 108–134; BP diastolic 51–77; PULSE 97–109; RESP 15–22; TEMP 97.3–98.3; O2SAT 98–100
[2017-05-26] MEDS: RESP: ALBUTEROL 2.5 MG/3 ML NEB (SCH) NEB ×7 (00:43→23:58)
[2017-05-26] MEDS: DOCUSATE SODIUM 50 MG/SENNA 8.6 MG TAB PO SCH ×2 (09:00→20:38)
[2017-05-26] MEDS ORDERED: SULFAMETHOXAZOLE-TRIMETHOPRIM DS 800-160 MG TAB PO SCH (09:00)
[2017-05-26] MEDS: FAMOTIDINE 20 MG TAB PO SCH ×2 (10:10→20:38)
[2017-05-26] MEDS: LEVOFLOXACIN 500 MG TAB PO SCH (10:12)
[2017-05-26 10:55] LABS: AUTOMATED NEUTROPHIL # 15.3 TH/MM3 (1.8-7.7); BASOPHIL # 0.1 TH/MM3 (0-0.2); BASOPHIL % 0.5 % (0.0-2.0); EOSINOPHIL # 0.2 TH/MM3 (0-0.4); EOSINOPHIL % 0.9 % (0.0-4.0); HEMATOCRIT 24.7 % (35.0-46.0); HEMO FLAGS DIFF FINAL; LYMPH % 6.3 % (9.0-44.0); LYMPHOCYTE # 1.2 TH/MM3 (1.0-4.8); MEAN CORPUSCULAR HEMOGLOBIN 28.7 PG (27.0-34.0); MEAN CORPUSCULAR HGB CONC 31.5 % (32.0-36.0); MONO % 8.6 % (0.0-8.0); NEUT % 83.7 % (16.0-70.0); PLATELET COUNT 371 TH/MM3 (150-450); RED BLOOD COUNT 2.71 MIL/MM3 (4.00-5.30); RED CELL DISTRIBUTION WIDTH 13.9 % (11.6-17.2); WHITE BLOOD COUNT 18.3 TH/MM3 (4.0-11.0)
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
[2017-05-26 11:11] LABS: ALKALINE PHOSPHATASE 162 U/L (45-117); ALT (GPT) 22 U/L (10-53); ANION GAP 6 MEQ/L (5-15); AST (GOT) 21 U/L (15-37); BICARBONATE 35.9 MEQ/L (21.0-32.0); BLOOD UREA NITROGEN 17 MG/DL (7-18); CHLORIDE 99 MEQ/L (98-107); GLOMERULAR FILTRATION RATE 102 ML/MIN (>89); POTASSIUM 3.8 MEQ/L (3.5-5.1); SODIUM (NA) 141 MEQ/L (136-145); TOTAL BILIRUBIN ADULT 0.3 MG/DL (0.2-1.0)
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
[2017-05-26] MEDS: diphenhydrAMINE HCL 25 MG CAP PO PRN (20:38)
[2017-05-26] MEDS: MAGNESIUM HYDROXIDE SUSP 30 ML CUP PO SCH (20:38)
[2017-05-26] MEDS: MELATONIN 5 MG TAB PO PRN (23:13)
[2017-05-26] MEDS: ACETAMINOPHEN/HYDROcodone 325 MG/5 MG TAB PO PRN (23:15)
[2017-05-27] VITALS (7 sets, daily range): BP systolic 120–132; BP diastolic 54–63; PULSE 88–104; RESP 16–20; TEMP 97.6–98.3; O2SAT 99–100
[2017-05-27] MEDS: RESP: ALBUTEROL 2.5 MG/3 ML NEB (SCH) NEB ×5 (03:10→20:26)
[2017-05-27] MEDS: diphenhydrAMINE HCL 25 MG CAP PO PRN (05:27)
[2017-05-27 07:21] LABS: AUTOMATED NEUTROPHIL # 9.7 TH/MM3 (1.8-7.7); BASOPHIL % 0.3 % (0.0-2.0); EOSINOPHIL # 0.1 TH/MM3 (0-0.4); HEMATOCRIT 23.9 % (35.0-46.0); HEMO FLAGS DIFF FINAL; LYMPH % 20.2 % (9.0-44.0); LYMPHOCYTE # 2.8 TH/MM3 (1.0-4.8); MEAN CELL VOLUME 93.2 FL (80.0-100.0); MEAN CORPUSCULAR HEMOGLOBIN 29.3 PG (27.0-34.0); MEAN CORPUSCULAR HGB CONC 31.5 % (32.0-36.0); MONO % 9.9 % (0.0-8.0); NEUT % 68.6 % (16.0-70.0); PLATELET COUNT 396 TH/MM3 (150-450); RED BLOOD COUNT 2.56 MIL/MM3 (4.00-5.30); RED CELL DISTRIBUTION WIDTH 14.2 % (11.6-17.2); WHITE BLOOD COUNT 14.1 TH/MM3 (4.0-11.0)
[2017-05-27 07:34] LABS: ALT (GPT) 20 U/L (10-53); ANION GAP 3 MEQ/L (5-15); AST (GOT) 14 U/L (15-37); BLOOD UREA NITROGEN 17 MG/DL (7-18); CHLORIDE 102 MEQ/L (98-107); GLOMERULAR FILTRATION RATE 122 ML/MIN (>89); POTASSIUM 4.1 MEQ/L (3.5-5.1); SODIUM (NA) 139 MEQ/L (136-145)
[2017-05-27 08:00] LABS: ALKALINE PHOSPHATASE 179 U/L (45-117); TOTAL BILIRUBIN ADULT 0.3 MG/DL (0.2-1.0)
[2017-05-27] MEDS: FAMOTIDINE 20 MG TAB PO SCH ×2 (08:37→22:40)
[2017-05-27] MEDS: LEVOFLOXACIN 500 MG TAB PO SCH (08:37)
[2017-05-27] MEDS: DOCUSATE SODIUM 50 MG/SENNA 8.6 MG TAB PO SCH ×2 (09:00→22:41)
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
[2017-05-27] MEDS ORDERED: HYDR-3516 PO (11:29)
[2017-05-27] MEDS ORDERED: LEVA500T20 PO (11:33)
[2017-05-27] MEDS ORDERED: BENA25CA4 PO (11:33)
[2017-05-27] MEDS ORDERED: FAMO20TA2 PO (11:33)
[2017-05-27] MEDS: MAGNESIUM HYDROXIDE SUSP 30 ML CUP PO SCH (22:40)
[2017-05-27] MEDS: MELATONIN 5 MG TAB PO PRN (22:41)
[2017-05-27] MEDS: ACETAMINOPHEN/HYDROcodone 325 MG/5 MG TAB PO PRN (22:41)
[2017-05-28] VITALS (8 sets, daily range): BP systolic 93–130; BP diastolic 52–62; PULSE 92–107; RESP 18–20; TEMP 97.6–98.5; O2SAT 96–100
[2017-05-28] MEDS: RESP: ALBUTEROL 2.5 MG/3 ML NEB (SCH) NEB ×4 (00:35→11:07)
--- NOTE | 2017-05-28 07:22 | PD.ORT.PN ---
Subjective Subjective Remarks s/p fall. right wrist fx doing well. pain controlled Objective Vitals Vital Signs Date Time Temp Pulse Resp B/P (MAP) Pulse Ox O2 Delivery O2 Flow Rate FiO2 05/28/17 04:00 97.6 104 20 126/60 (82) 100 05/28/17 03:18 99 Nasal Cannula 2.00 05/28/17 00:00 98.4 92 20 130/60 (83) 05/27/17 20:27 99 Nasal Cannula 3.00 05/27/17 20:00 98.3 102 20 132/56 (81) 99 05/27/17 20:00 92 05/27/17 12:00 97.9 94 16 130/63 (85) 100 05/27/17 08:15 100 Nasal Cannula 2.00 05/27/17 08:07 100 Nasal Cannula 3.00 05/27/17 08:00 97.6 88 16 120/54 (76) 100 I/O 05/27/17 05/27/17 05/27/17 05/28/17 05/28/17 05/28/17 07:00 15:00 23:00 07:00 15:00 23:00 Intake Total 120 ml Output Total 1 ml Balance 120 ml -1 ml Intake Oral 120 ml Output Urine Total 1 ml # Voids 3 # Bowel Movements 0 1 Result Diagram: 05/27/1764305/27/17643 Objective Remarks RUE: +long arm cast in good repair. nvi Assessment & Plan Assessment and Plan 1) right distal radius fx - nonop -NWB -maintain cast at all times -f/u with [facility] or [facility] in 2 weeks Watson Almeida May 28, 2017 07:22
[2017-05-28] MEDS: ACETAMINOPHEN/HYDROcodone 325 MG/5 MG TAB PO PRN ×2 (08:28→14:06)
[2017-05-28] MEDS: LEVOFLOXACIN 500 MG TAB PO SCH (08:28)
[2017-05-28] MEDS: FAMOTIDINE 20 MG TAB PO SCH ×2 (08:28→21:30)
[2017-05-28] MEDS: DOCUSATE SODIUM 50 MG/SENNA 8.6 MG TAB PO SCH ×2 (08:28→21:00)
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
[2017-05-28] MEDS: MAGNESIUM HYDROXIDE SUSP 30 ML CUP PO SCH (21:00)
[2017-05-29] VITALS (10 sets, daily range): BP systolic 119–136; BP diastolic 56–62; PULSE 91–107; RESP 16–20; TEMP 97–98.5; O2SAT 20–100
[2017-05-29] MEDS: ACETAMINOPHEN/HYDROcodone 325 MG/5 MG TAB PO PRN ×3 (00:36→16:45)
[2017-05-29] MEDS: diphenhydrAMINE HCL 25 MG CAP PO PRN (05:34)
[2017-05-29] MEDS: RESP: ALBUTEROL 2.5 MG/3 ML NEB (SCH) NEB ×6 (05:49→23:29)
[2017-05-29] MEDS: DOCUSATE SODIUM 50 MG/SENNA 8.6 MG TAB PO SCH ×2 (10:10→21:31)
[2017-05-29] MEDS: FAMOTIDINE 20 MG TAB PO SCH ×2 (10:11→21:31)
[2017-05-29] MEDS: LEVOFLOXACIN 500 MG TAB PO SCH (10:12)
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
[2017-05-29] MEDS: MAGNESIUM HYDROXIDE SUSP 30 ML CUP PO SCH (21:31)
[2017-05-30] VITALS (8 sets, daily range): BP systolic 102–120; BP diastolic 52–79; PULSE 73–110; RESP 20–22; TEMP 97.5–98.1; O2SAT 98–100
[2017-05-30] MEDS: diphenhydrAMINE HCL 25 MG CAP PO PRN (00:45)
[2017-05-30] MEDS: ACETAMINOPHEN/HYDROcodone 325 MG/5 MG TAB PO PRN ×2 (00:46→13:15)
[2017-05-30] MEDS: RESP: ALBUTEROL 2.5 MG/3 ML NEB (SCH) NEB ×4 (03:11→14:57)
[2017-05-30] MEDS: DOCUSATE SODIUM 50 MG/SENNA 8.6 MG TAB PO SCH (09:00)
[2017-05-30] MEDS: LEVOFLOXACIN 500 MG TAB PO SCH (10:12)
[2017-05-30] MEDS: FAMOTIDINE 20 MG TAB PO SCH (10:12)
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
== END 2017-05-30 16:31 | disposition home or self-care (01) | DRG 563 ==
LOC: NEPI 16:33 → NEDA 17:52 → EDBD 17:52 → N03A 21:02 → N05A 05-24 19:10
PROVIDERS: ADMIT Surgery; ATTEND Surgery
PROC: 0HQ0XZZ Repair Scalp Skin, External Approach (ICD-10-PCS; principal; 2017-05-23)
DX: S52.501A Unspecified fracture of the lower end of right radius, initial encounter for closed fracture (principal); I95.9 Hypotension, unspecified; N39.0 Urinary tract infection, site not specified; D64.9 Anemia, unspecified; J44.9 Chronic obstructive pulmonary disease, unspecified; G30.9 Alzheimer's disease, unspecified; M48.54XA Collapsed vertebra, not elsewhere classified, thoracic region, initial encounter for fracture; F02.80 Dementia in other diseases classified elsewhere, unspecified severity, without behavioral disturbance, psychotic disturbance, mood disturbance, and anxiety; S01.01XA Laceration without foreign body of scalp, initial encounter; M48.56XD Collapsed vertebra, not elsewhere classified, lumbar region, subsequent encounter for fracture with routine healing; W06.XXXA Fall from bed, initial encounter; Y93.9 Activity, unspecified; Y92.003 Bedroom of unspecified non-institutional (private) residence as the place of occurrence of the external cause; S00.01XA Abrasion of scalp, initial encounter; M48.06 Spinal stenosis, lumbar region; R06.82 Tachypnea, not elsewhere classified; R00.0 Tachycardia, unspecified; R91.8 Other nonspecific abnormal finding of lung field; E27.9 Disorder of adrenal gland, unspecified; R29.6 Repeated falls; Z66 Do not resuscitate; Z72.0 Tobacco use; F43.10 Post-traumatic stress disorder, unspecified; S40.211A Abrasion of right shoulder, initial encounter; S80.811A Abrasion, right lower leg, initial encounter
CPT/HCPCS: 12001; 70450; 71010; 71260; 72125; 72128; 72131; 72170; 73100; 74177; 76937; 80053; 81001; 82140; 82435; 82565; 82607; 82947; 84132; 84295; 84443; 84520; 85014; 85018; 85025; 85610; 85730; 86592; 86850; 86900; 86901; 87077; 87086; 87186; 87641; 90471; 90715; 94150; 94640; 94664; 99291; G0390; J0690; J2270; J2405; J7030; J7613; L0150; L0200; L0484; L3808; Q9967